=== PATIENT | female | born 1995 | race African-American/Black ===

== ENCOUNTER 2016-08-11 17:21 | Emergency (ER) | payer OTHER ==
[2016-08-11 17:32] VITALS: BP 124/68; PULSE 74; TEMP 98.2; BMI 21.9
--- NOTE | 2016-08-11 18:20 | PDOC ---
History of Present Illness - General History Source: Patient Exam Limitations: No Limitations - History of Present Illness Initial Comments: 08/11/16 18:54 The patient is a 21-year-old female (- currently 12 weeks ), with no significant past medical history, who presents to the emergency department with vaginal bleeding and lower abdominal cramping today. She reports that the vaginal bleeding started immediately prior to arrival to the ED, and is ongoing at time of interview. She reports associated lower abdominal cramping and discomfort, with a severity of 6/10, without radiation, that started earlier today. She denies any passage of clots. She reports she was diagnosed with BV early on in this . The patient denies chest pain, shortness of breath, headache and dizziness. The patient denies fever, chills, nausea, vomit, diarrhea and constipation. The patient denies dysuria, frequency, urgency and hematuria. Allergies: No known drug allergies Past surgical history: None reported Social history: Denies smoking, ETOH, recreational drug use FURNACE RELINER: Dr. Lisette Rojas <Suellen Maddox - Last Filed: 08/11/16 18:54> <Zelda Goodman - Last Filed: 08/11/16 20:43> - General History Source: Patient Exam Limitations: No Limitations <Saritha Pearson - Last Filed: 08/14/16 10:33> - General Chief Complaint: Vaginal Bleeding Stated Complaint: VAGINAL BLEEDING Time Seen by Provider: 08/11/16 17:59 Past History <Suellen Maddox - Last Filed: 08/11/16 18:54> <Zelda Goodman - Last Filed: 08/11/16 20:43> - Past Medical History Asthma: No Cancer: No Cardiac Disorders: No Diabetes: No HTN: No Seizures: No Thyroid Disease: No - Reproductive History (#): 1 Para: 1 Cervical CA: No Dysfunctional Uterine Bleeding: No Ectopic : No Endometrial CA: No Polycystic Ovaries: No Therapeutic (s) & number: No Tubal Ligation: No Spontaneous : 0 - Immunization History Immunization Up to Date: Yes - Psycho/Social/Smoking Cessation Hx Anxiety: No Suicidal Ideation: No Smoking Status: No Smoking History: Never smoked Have you smoked in the past 12 months: No Number of Cigarettes Smoked Daily: 0 Information on smoking cessation initiated: No Hx Alcohol Use: No Drug/Substance Use Hx: No Substance Use Type: None Hx Substance Use Treatment: No <Saritha Pearson - Last Filed: 08/14/16 10:33> - Past Medical History Allergies/Adverse Reactions: Allergies Allergy/AdvReac Type Severity Reaction Status Date / Time No Known Allergies Allergy Verified 08/11/16 17:32 Home Medications: Ambulatory Orders Vit/Iron Fumarate/FA [ Tablet] 1 each PO DAILY 08/11/16 Review of Systems - Review of Systems Able to Perform ROS?: Yes Comments:: 08/11/16 18:54 GENERAL/CONSTITUTIONAL: No: fever, chills, weakness, loss of appetite. HEAD, EYES, EARS, NOSE AND THROAT: No: change in vision, ear pain, discharge, sore throat, throat swelling. CARDIOVASCULAR: No: chest pain, lightheadedness, palpitations, syncope RESPIRATORY: No: cough, shortness of breath, wheezing, hemoptysis, stridor. GASTROINTESTINAL: No: nausea, vomiting, diarrhea, rectal bleeding, constipation. GENITOURINARY: No: dysuria, hematuria, frequency, urgency, flank pain. PELVIC: Present: (+) vaginal bleeding, (+) lower abdominal cramping MUSCULOSKELETAL: No: back pain, neck pain, joint pain, muscle swelling or pain SKIN AND BREASTS: No: lesions, pallor, rash or easy bruising. NEUROLOGIC: No: headache, vertigo, paresthesias, weakness ENDOCRINE: No: unexplained weight gain or loss HEMATOLOGIC/LYMPHATIC: No: anemia, easy bleeding, swelling nodes <Maddox,Suellen - Last Filed: 08/11/16 18:54> *Physical Exam - Vital Signs Last Vital Signs Temp Pulse Resp BP Pulse Ox 98.2 F 74 18 124/68 100 08/11/16 17:30 08/11/16 17:30 08/11/16 17:30 08/11/16 17:30 08/11/16 17:30 - Physical Exam Comments: 08/11/16 18:55 GENERAL: The patient is in no acute distress. HEAD: Normal with no signs of trauma. EYES: PERRLA, EOMI, sclera anicteric, conjunctiva clear. ENT: Ears normal, nares patent, oropharynx clear without exudates. Moist mucous membranes. NECK: Normal range of motion, supple without lymphadenopathy, JVD, or masses. LUNGS: Breath sounds equal, clear to auscultation bilaterally. No wheezes, and no crackles. HEART:Regular rate and rhythm, normal S1 and S2 without murmur, rub or gallop. ABDOMEN: (+) Gravid abdomen. No lower abdominal tenderness. No guarding, no rebound. Soft, normoactive bowel sounds. EXTREMITIES: Normal range of motion, no edema. No clubbing or cyanosis. No erythema, or tenderness. NEUROLOGICAL: Cranial nerves II through XII grossly intact. Normal speech. No focal neurological deficits. MUSCULOSKELETAL: Back non-tender to palpation, no CVA tenderness SKIN: Warm, Dry, normal turgor, no rashes or lesions noted. <Suellen Maddox - Last Filed: 08/11/16 18:54> - Vital Signs Last Vital Signs Temp Pulse Resp BP Pulse Ox 98.2 F 74 18 124/68 100 08/11/16 17:30 08/11/16 17:30 08/11/16 17:30 08/11/16 17:30 08/11/16 17:30 <Zelda Goodman - Last Filed: 08/11/16 20:43> - Vital Signs Last Vital Signs Temp Pulse Resp BP Pulse Ox 98.2 F 74 18 124/68 100 08/11/16 17:30 08/11/16 17:30 08/11/16 17:30 08/11/16 17:30 08/11/16 17:30 <Saritha Pearson - Last Filed: 08/14/16 10:33> ED Treatment Course - LABORATORY CBC & Chemistry Diagram: 08/11/16 18:24 08/11/16 18:24 - ADDITIONAL ORDERS Additional order review: Laboratory Results 08/11/16 18:24 Urine Color Ltyellow Urine Appearance Clear Urine pH 5.0 Ur Specific [place] 1.014 Urine Protein Negative Urine Glucose (UA) Negative Urine Ketones Negative Urine Blood 3+ H Urine Nitrite Negative Urine Bilirubin Negative Urine Urobilinogen Negative Ur Leukocyte Esterase Negative Urine RBC 471 Urine WBC 7 Ur Epithelial Cells Rare Urine Bacteria Rare Urine Mucus Rare 08/11/16 18:24 RBC 3.92 D MCV 87.1 MCHC 32.0 RDW 13.3 MPV 9.5 D Neutrophils % 73.8 Lymphocytes % 18.4 D Monocytes % 6.4 Eosinophils % 1.0 Basophils % 0.4 <MaddoxRosiSuellen - Last Filed: 08/11/16 18:54> - LABORATORY CBC & Chemistry Diagram: 08/11/16 18:24 08/11/16 18:24 - ADDITIONAL ORDERS Additional order review: Laboratory Results 08/11/16 08/11/16 08/11/16 18:24 18:24 18:24 Sodium 139 Potassium 3.7 Chloride 103 Carbon Dioxide 23 Anion Gap 13 BUN 6 L D Creatinine 0.6 Random Glucose 87 Calcium 8.6 Beta HCG, Quant 07612.0 Urine Color Ltyellow Urine Appearance Clear Urine pH 5.0 Ur Specific [place] 1.014 Urine Protein Negative Urine Glucose (UA) Negative Urine Ketones Negative Urine Blood 3+ H Urine Nitrite Negative Urine Bilirubin Negative Urine Urobilinogen Negative Ur Leukocyte Esterase Negative Urine RBC 471 Urine WBC 7 Ur Epithelial Cells Rare Urine Bacteria Rare Urine Mucus Rare Blood Type A POSITIVE Antibody Screen Negative 08/11/16 18:24 RBC 3.92 D MCV 87.1 MCHC 32.0 RDW 13.3 MPV 9.5 D Neutrophils % 73.8 Lymphocytes % 18.4 D Monocytes % 6.4 Eosinophils % 1.0 Basophils % 0.4 <Zelda Goodman - Last Filed: 08/11/16 20:43> - LABORATORY CBC & Chemistry Diagram: 08/11/16 18:24 08/11/16 18:24 <Saritha Pearson - Last Filed: 08/14/16 10:33> Medical Decision Making - Medical Decision Making 08/11/16 20:38 Patient Name: Netta Muir THIS IS A PRELIMINARY REPORT FROM IMAGING PROCUREMENT DIRECTOR DATE OF SERVICE: 2016-08-11 19:42:26.0 IMAGES: 31 EXAM: Ultrasound OB transabdominal HISTORY:Vaginal bleeding, abdominal pain COMPARISON: None. FINDINGS:There is a single intrauterine gestation with crown-rump length measurement corresponding to 12 weeks 3 days gestation. The calculated . heart motion is 156.5 beats per minute. Placenta is anterior lateral. Left ovary measures 4.8 x 2.6 x 4.3 cm. There is a mildly complex 2.8 x 2.5 x 3.1 cm ovarian cyst. IMPRESSION: Single intrauterine gestation 12 weeks 4 days with calculated due date of 02/19/17. <Zelda Goodman - Last Filed: 08/11/16 20:43> - Medical Decision Making 08/11/16 18:17 A portion of this note was documented by scribe services under my direction. I have reviewed the details of the note, within reason, and agree with the documentation with the following case summary and management plan written by me. Nursing documentation reviewed and incorporated into medical decision making This is a 21-year-old female, approximately 12 weeks presented to emergency department with a complaint of vaginal bleeding. Patient states her symptoms began just before arrival to emergency department. Patient notes she has lower abdominal crampy pain which she rates 7/10 and states began earlier today. Patient is not saturating any pads. No lightheadedness or dizziness Patient had a recent diagnosis of bacterial vaginosis, was treated with MetroGel. No medical history. No surgeries. On Awake Counselor: Dr. Berkowitz 08/11/16 18:18 Differential diagnosis: Threatened Ab, spontaneous AB, subchorionic bleeding Will do labs - CBC, Type and Screen BHCG Will do US Will re assess Signed out to Hazel Goodman <Saritha Pearson - Last Filed: 08/14/16 10:33> *DC/Admit/Observation/Transfer - Attestations Scribe Attestion: 08/11/16 18:55 Documentation prepared by Suellen Maddox, acting as medical lab technician for Saritha Pearson MD. <Suellen Maddox - Last Filed: 08/11/16 18:54> - Discharge Dispostion Admit: No <Zelda Goodman - Last Filed: 08/11/16 20:43> <Saritha Pearson - Last Filed: 08/14/16 10:33> Diagnosis at time of Disposition: Threatened - Discharge Dispostion Disposition: HOME Condition at time of disposition: Stable - Referrals Referrals: Lisette Rojas MD [Staff Physician] -
[2016-08-11 18:30] LABS: BASOPHIL 0.4 % (0-2.0); MCH 27.9 pg (25.7-33.7); MEAN CELL VOLUME 87.1 fl (80-96); MEAN PLT VOLUME 9.5 fl (7.5-11.1); NEUTROPHILS 73.8 % (42.8-82.8); PLATELET COUNT 203 K/MM3 (134-434); RDW 13.3 % (11.6-15.6); WHITE BLOOD COUNT 7.6 K/mm3 (4.0-10.0)
[2016-08-11 18:32] LABS: URINE APPEARANCE CLEAR; URINE BILIRUBIN NEGATIVE (NEGATIVE); URINE COLOR LTYELLOW; URINE GLUCOSE (UA) NEGATIVE (NEGATIVE); URINE KETONE NEGATIVE (NEGATIVE); URINE LEUK ESTERASE NEGATIVE (NEGATIVE); URINE NITRITE NEGATIVE (NEGATIVE); URINE PROTEIN NEGATIVE (NEGATIVE); URINE UROBILINOGEN NEGATIVE E.U./dl (0.2-1.0)
[2016-08-11 18:33] LABS: URINE BLOOD 3+ (NEGATIVE)
[2016-08-11 18:41] LABS: URINE BACTERIA RARE /hpf (NONE SEEN); URINE MUCUS RARE; URINE RBC 471 /hpf (0-3); URINE WBC 7 /hpf (3-5)
[2016-08-11 18:54] LABS: CALCIUM 8.6 mg/dL (8.5-10.1); CREATININE 0.6 mg/dL (0.55-1.02)
[2016-08-11] MEDS ORDERED: ACETAMINOPHEN 325 MG TABLET (FP) ONE (19:28)
[2016-08-11] MEDS ORDERED: ACETAMINOPHEN 325 MG TABLET (FP) PO ONE (19:55)
== END 2016-08-11 20:57 | disposition home or self-care (01) ==
LOC: JER 17:21
DX: O20.0 Threatened abortion (principal); Z3A.12 12 weeks gestation of pregnancy
CPT/HCPCS: 36415; 76801-TC; 80048; 81003; 81015; 84702; 85025; 86850; 86900; 86901; 87086; 99283-25

== ENCOUNTER 2016-08-31 16:13 | Emergency (ER) | payer OTHER ==
[2016-08-31 16:17] VITALS: BP 121/78; PULSE 78; TEMP 98; BMI 21.9
--- NOTE | 2016-08-31 17:42 | PDOC ---
History of Present Illness - General Chief Complaint: Vaginal Bleeding Stated Complaint: VAGINAL BLEEDING, 16 WKS History Source: Patient Exam Limitations: No Limitations - History of Present Illness Travel History: No Initial Comments: 08/31/16 17:37 HPI: This 21 year old female who is 16 weeks presents to ER with some mild vaginal spotting that started for 5 days as dark brown and now becoming horse breaker with one clot today. She is G 2 P1. There were no high risk issues on her last . She states one month ago she had heavy vaginal bleeding and her STAFFING RN stated everything was ok and possibly due to stress and placed on bedrest. She was not told she has any placenta previa or abrupto. She has had some cramping on and off Chief Compliant:vaginal bleeding in 2nd trimester PMH: none FH: Pt has not recently traveled outside the country in the last 30 days. Pt has not been in contact with people who have traveled out of the country, in contact with people who have been ill with fever, n, v, d. SH: smoking use: NONE illicit drug use: NONE alcohol use: NONE PSH: Home med use noted on OCT Allergies:nka Immunizations: PCP: STAFFING RN:Dr. Rojas LMP:05/25/2016 Past History - Past Medical History Allergies/Adverse Reactions: Allergies Allergy/AdvReac Type Severity Reaction Status Date / Time No Known Allergies Allergy Verified 08/31/16 16:17 Home Medications: Ambulatory Orders Vit/Iron Fumarate/FA [ Tablet] 1 each PO DAILY 08/11/16 Asthma: No Cancer: No Cardiac Disorders: No Diabetes: No HTN: No Seizures: No Thyroid Disease: No - Reproductive History (#): 1 Para: 1 Cervical CA: No Dysfunctional Uterine Bleeding: No Ectopic : No Endometrial CA: No Polycystic Ovaries: No Therapeutic (s) & number: No Tubal Ligation: No Spontaneous : 0 - Immunization History Immunization Up to Date: Yes - Psycho/Social/Smoking Cessation Hx Anxiety: No Suicidal Ideation: No Smoking Status: No Smoking History: Never smoked Have you smoked in the past 12 months: No Number of Cigarettes Smoked Daily: 0 Information on smoking cessation initiated: No Hx Alcohol Use: No Drug/Substance Use Hx: No Substance Use Type: None Hx Substance Use Treatment: No Review of Systems - Review of Systems Able to Perform ROS?: Yes Comments:: 08/31/16 18:24 General statement: I have vaginal bleeding and I am Hematology: neg history of bleeding/blood thinners Skin: Neg for lesions, rash, bruising. HEENT: Neg symptoms Respiratory: Neg SOB or difficulty in breathing Cardiac: Neg chest pain GI: Neg pain, n/v STAFFING RN: vaginal bleeding : Neg problems on voiding MS: Neg for joint pain/stiffness, no edema Neuro: Neg for LOC, weakness, Endocrine: Neg for excess thirst/hunger, cold/heat intolerance, excess sweating Allergies: Neg for allergies *Physical Exam - Vital Signs Last Vital Signs Temp Pulse Resp BP Pulse Ox 98 F 78 18 121/78 98 08/31/16 16:15 08/31/16 16:15 08/31/16 16:15 08/31/16 16:15 08/31/16 16:15 - Physical Exam Comments: 08/31/16 18:24 General Appearance: This well appearing 21 year old female V/S: hemodynamically stable, afebrile Skin: WNL of pt's skin color, no signs of pallor, mottling, cyanosis Head:symmetrical Eyes: EOM's intact, PERRLA Ears: denies pain Nose: patent Throat: lips, teeth, gums, tongue, buccal mucos pink and moist Lungs: Chest symmetry equal. Cap refill <3 seconds. Lung sounds clear Cardiac: PMI at R 4MCL space, pos S1 and S2, regular rate. Abdomen: Soft, round, nontender STAFFING RN: states 2 peripads used today due to bleeding : Not observed Muscularskeletal: Gait steady, ambulated in to ER, no edema +PMS Neuro: AAOx3, cognitively intact, speech clear and appropriate. ED Treatment Course - LABORATORY CBC & Chemistry Diagram: 08/31/16 17:43 Medical Decision Making - Medical Decision Making 08/31/16 18:25 Pt seen and examined. Pt states vaginal bleeding an mild crampin with 16 week A/P Threatened vs abrupto/previa 1. cbc 2. t and s 3 ua 4 beta hcg 5. pelvic u/s 08/31/16 18:48 I am signing this patient out to my colleague: RICK Sheridan In brief, this patient is being seen in the ED for a chief complaint of: vaginal bleeding in 2nd trimester bleeding I have completed the initial assessment interview note and have ordered:u/s and labs Please call the PCP:Dr. Rojas Plan for disposition is as follows: pending *DC/Admit/Observation/Transfer Diagnosis at time of Disposition: Abdominal pain in - Referrals Referrals: Susanna Carver MD [Primary Care Provider] -
--- NOTE | 2016-08-31 17:42 | PDOC ---
[id number] 98 08/31/16 16:15 08/31/16 16:15 08/31/16 16:15 08/31/16 16:15 08/31/16 16:15 ED Treatment Course - LABORATORY CBC & Chemistry Diagram: 08/31/16 17:43 Medical Decision Making - Medical Decision Making 08/31/16 17:42 Pt seen by the Advanced Practice Provider under my direct supervision Ancillary studies reviewed I agree with plan as outlined by the Advanced Practice Provider JULIAN Webb *DC/Admit/Observation/Transfer Diagnosis at time of Disposition: Abdominal pain in , Vaginal bleeding in , Threatened - Discharge Dispostion Disposition: HOME - Referrals Referrals: Susanna Carver MD [Primary Care Provider] - - Patient Instructions Printed Discharge Instructions: DI for Vaginal Bleeding During Additional Instructions: FOLLOW UP WITH YOUR DRYWALL STRIPPER HELPER EARLY NEXT WEEK DISCUSSED. RETURN IF SYMPTOMS WORSEN OR ANY CONCERNS FOR FURTHER EVALUATION. Print Language: GRENADIAN - Post Discharge Activity Work/School Note: Back to Work
[2016-08-31 17:59] LABS: BASOPHIL 0.5 % (0-2.0); EOSINOPHIL 0.4 % (0-4.5); MCH 29.1 pg (25.7-33.7); MCHC 33.2 g/dl (32.0-36.0); MEAN CELL VOLUME 87.9 fl (80-96); MEAN PLT VOLUME 9.8 fl (7.5-11.1); NEUTROPHILS 74.5 % (42.8-82.8); PLATELET COUNT 177 K/MM3 (134-434); RDW 13.4 % (11.6-15.6); WHITE BLOOD COUNT 7.6 K/mm3 (4.0-10.0)
[2016-08-31 18:07] LABS: URINE APPEARANCE CLOUDY; URINE BILIRUBIN NEGATIVE (NEGATIVE); URINE BLOOD 3+ (NEGATIVE); URINE COLOR YELLOW; URINE GLUCOSE (UA) NEGATIVE (NEGATIVE); URINE KETONE TRACE (NEGATIVE); URINE LEUK ESTERASE 2+ (NEGATIVE); URINE NITRITE NEGATIVE (NEGATIVE); URINE PROTEIN NEGATIVE (NEGATIVE); URINE UROBILINOGEN 2.0 E.U/dl E.U./dl (0.2-1.0)
[2016-08-31 18:15] LABS: CALCIUM OXALATE CRYSTALS RARE /hpf (NONE SEEN); URINE BACTERIA MODERATE /hpf (NONE SEEN); URINE MUCUS MODERATE; URINE RBC 25 /hpf (0-3); URINE WBC 54 /hpf (3-5)
--- NOTE | 2016-08-31 20:47 | PDOC ---
*Physical Exam - Vital Signs Last Vital Signs Temp Pulse Resp BP Pulse Ox 98 F 78 18 121/78 98 08/31/16 16:15 08/31/16 16:15 08/31/16 16:15 08/31/16 16:15 08/31/16 16:15 ED Treatment Course - LABORATORY CBC & Chemistry Diagram: 08/31/16 17:43 - ADDITIONAL ORDERS Additional order review: Laboratory Results 08/31/16 08/31/16 08/31/16 17:43 17:43 17:41 Beta HCG, Quant 97624.5 Urine Color Yellow Urine Appearance Cloudy Urine pH 5.0 Ur Specific [place] 1.025 Urine Protein Negative Urine Glucose (UA) Negative Urine Ketones Trace H Urine Blood 3+ H Urine Nitrite Negative Urine Bilirubin Negative Urine Urobilinogen 2.0 e.u/dl H Ur Leukocyte Esterase 2+ H Urine RBC 25 Urine WBC 54 Ur Epithelial Cells Moderate Calcium Oxalate Crystal Rare Urine Bacteria Moderate Urine Mucus Moderate Blood Type A POSITIVE Antibody Screen Negative 08/31/16 17:43 RBC 3.75 MCV 87.9 MCHC 33.2 RDW 13.4 MPV 9.8 Neutrophils % 74.5 Lymphocytes % 18.7 Monocytes % 5.9 Eosinophils % 0.4 Basophils % 0.5 Progress Note - Progress Note Progress Note: Spoke with patient regarding results of subchronic bleeding. Discussed with patient that this is a common finding and that she should follow up with her OB/ SALES CLOSER early next week. Patient states she has an appointment for Sep 12. Patient was instructed to get in sooner if she can. *DC/Admit/Observation/Transfer Diagnosis at time of Disposition: Abdominal pain in , Threatened Vaginal bleeding in Qualifiers: Trimester: second trimester Qualified Code(s): O46.92 - Antepartum hemorrhage, unspecified, second trimester - Discharge Dispostion Disposition: HOME Condition at time of disposition: Stable Admit: No - Referrals Referrals: Susanna Carver MD [Primary Care Provider] - - Patient Instructions Printed Discharge Instructions: DI for Vaginal Bleeding During Additional Instructions: FOLLOW UP WITH YOUR COLLAR TACKER EARLY NEXT WEEK DISCUSSED. RETURN IF SYMPTOMS WORSEN OR ANY CONCERNS FOR FURTHER EVALUATION. Print Language: GREEK - Post Discharge Activity Work/School Note: Back to Work
== END 2016-08-31 20:58 | disposition home or self-care (01) ==
LOC: JER 16:13
DX: O26.892 Other specified pregnancy related conditions, second trimester (principal); Z3A.16 16 weeks gestation of pregnancy; R10.9 Unspecified abdominal pain
CPT/HCPCS: 36415; 76801-TC; 81003; 81015; 84702; 85025; 86850; 86900; 86901; 99282-25

== ENCOUNTER 2017-02-18 09:05 | Inpatient (IN) | payer OTHER ==
[2017-02-18 09:58] VITALS: BMI 24.7
[2017-02-18 10:59] LABS: BASOPHIL 0.4 % (0-2.0); EOSINOPHIL 0.6 % (0-4.5); MEAN CELL VOLUME 90.9 fl (80-96); NEUTROPHILS 70.8 % (42.8-82.8); PLATELET COUNT 135 K/MM3 (134-434); RDW 13.1 % (11.6-15.6); WHITE BLOOD COUNT 6.8 K/mm3 (4.0-10.0)
[2017-02-18] MEDS ORDERED: DINOPROSTONE 10 MG VAGINAL SUPPOSITORY VG ONE (11:00)
[2017-02-18 11:25] LABS: ANION GAP 8 (8-16); CALCIUM 8.7 mg/dL (8.5-10.1); CO2 24 mmol/L (21-32); CREATININE 0.7 mg/dL (0.55-1.02); GLUCOSE,RANDOM 86 mg/dL (74-106)
[2017-02-18 11:28] LABS: INR 0.95 (0.82-1.09); PROTHROMBIN TIME (PATIENT) 10.4 SEC (9.98-11.88)
[2017-02-18 11:31] LABS: ACTIVATED PTT 26.9 SECONDS (26.9-34.4)
[2017-02-18] MEDS ORDERED: TUBERCULIN PPD 5 TU/0.1ML SYRINGE (IN PATIENT USE ONLY) ID ONE (13:00)
[2017-02-19] MEDS ORDERED: DEXTROSE 5%-LACTATED RINGERS 1,000 ML IV ONE (04:58)
[2017-02-19] MEDS ORDERED: BUTORPHANOL TARTRATE 1 MG/ML VIAL IVPUSH ONE (08:30)
[2017-02-19] MEDS ORDERED: PROMETHAZINE HCL 25 MG/1 ML VIAL IVPUSH ONE (08:30)
[2017-02-19] MEDS ORDERED: LACTATED RINGERS SOLUTION 1,000 ML IV ONE (11:00)
[2017-02-19] MEDS ORDERED: FENTANYL/BUPIVACAINE/NS/PF - PCEA - 50 ML DISP.SYRIN EP SCH (12:15)
--- NOTE | 2017-02-19 13:16 | HP ---
Past Medical History - Primary Care Physician PCP:: Lisette Rojas - Admission History Source: Patient Limitations to Obtaining History: No Limitations - Past Medical History ...: 2 ...Para: 1 ...Term: 1 ...: 0 ...Spon : 0 ...Induced : 0 ...Multiple Gestation: 0 ...LMP: 05/25/16 ...EDC by Dates: 03/01/17 ...EDC by Sono: 02/22/17 - Past Surgical History Past Surgical History: Yes: None - Smoking History Smoking history: Never smoked Have you smoked in the past 12 months: No Aproximately how many cigarettes per day: 0 - Alcohol/Substance Use Hx Alcohol Use: No Home Medications - Allergies Allergies/Adverse Reactions: Allergies Allergy/AdvReac Type Severity Reaction Status Date / Time No Known Allergies Allergy Verified 02/11/17 10:57 - Home Medications Home Medications: Ambulatory Orders Vit/Iron Fumarate/FA [ Tablet] 1 each PO DAILY 08/11/16 Review of Systems - Review of Systems Constitutional: reports: No Symptoms Eyes: reports: No Symptoms HENT: reports: No Symptoms Neck: reports: No Symptoms Cardiovascular: reports: No Symptoms Respiratory: reports: No Symptoms Gastrointestinal: reports: No Symptoms Genitourinary: reports: No Symptoms Breasts: reports: No Symptoms Reported Musculoskeletal: reports: No Symptoms Integumentary: reports: No Symptoms Neurological: reports: No Symptoms Endocrine: reports: No Symptoms Hematology/Lymphatic: reports: No Symptoms Psychiatric: reports: No Symptoms Physical Exam - Maternity Vital Signs: Vital Signs Temperature 98.0 F 02/19/17 10:00 Pulse Rate 64 02/19/17 12:45 Respiratory Rate 14 02/19/17 12:45 Blood Pressure 115/60 02/19/17 12:45 O2 Sat by Pulse Oximetry (%) 100 02/19/17 12:45 - Labs Lab Results: CBC, BMP 02/18/17 10:40 02/18/17 10:40 Hemorrhage Risk Assessment - Risk Factors Risk Score: 0 Risk Level: Low Risk Assessment/Plan Induction of labor at 39.4 weeks Plan Cervidil
[2017-02-19] MEDS ORDERED: OXYTOCIN 15 UNITS/ LR 250 ML 250 ML IVPB SCH (13:45)
--- NOTE | 2017-02-19 14:27 | PN ---
Ante-Partal Exam - Subjective Subjective: Pt with EFM - prolonged decel x 5 min Vital Signs: Vital Signs Temperature 98.0 F 02/19/17 10:00 Pulse Rate 64 02/19/17 12:45 Respiratory Rate 14 02/19/17 12:45 Blood Pressure 115/60 02/19/17 12:45 O2 Sat by Pulse Oximetry (%) 100 02/19/17 12:45 Bleeding: No Headache: No Visual changes: No Right upper quadrant pain: No - Contractions Contractions: Yes Regularity: Regular Intensity: Moderate Monitor Mode: Internal - Exam during Labor Heart Rate: 150 Variability: Moderate Category: II Monitor Accelerations: Present Monitor Decelerations: Prolonged Exam: Vaginal Dilatation (cm): 6 Effacement (%): 100 Amniotic Membrane Status: Ruptured Amniotic Fluid: Clear Presentation: Vertex Station: 0 - Intrapartum Hemorrhage Risk High Risk Factors: None Risk Score: 0 Risk Level: Low Risk - Assessment/Plan Assessment/Plan: iup at 39.5 week prolonged decel x 5 min Plan dc pitocin internal catheter placed
[2017-02-19] MEDS ORDERED: D5W-LR W/ 20 UNITS OXYTOCIN 1,000 ML IV ONE (16:45)
[2017-02-19 17:39] LABS: ARTERIAL BLD GAS O2 SATURATION 65.8 % (90-98.9); ARTERIAL BLOOD GAS BASE EXCESS -1.9 meq/l (-2-2); ARTERIAL BLOOD GAS HCO3 23.5 meq/L (22-26); ARTERIAL BLOOD GAS pH 7.34 (7.35-7.45); PT. ON O2? yes
[2017-02-19 17:40] LABS: ARTERIAL BLOOD GAS PO2 33.4 mmHg (80-100); LPM/O2% 6L; TYPE OF O2 S/M
[2017-02-19] MEDS ORDERED: OXYTOCIN 15 UNITS/ LR 250 ML 250 ML IV ONE (17:41)
[2017-02-19] MEDS ORDERED: METHYLERGONOVINE MALEATE 0.2 MG/1 ML AMP IM PRN (18:41)
[2017-02-19] MEDS ORDERED: WITCH HAZEL 50% (TUCKS) 40 PAD/JAR PAD TP PRN (18:41)
[2017-02-19] MEDS ORDERED: BENZOCAINE 20% 57 GM BOTTLE TP PRN (18:41)
[2017-02-19] MEDS ORDERED: BENZOCAINE 28 GM HEMORRHOIDAL OINTMENT PR PRN (18:41)
[2017-02-19] MEDS ORDERED: BISACODYL 10 MG SUPP.RECT RC PRN (18:41)
--- NOTE | 2017-02-19 18:44 | PN ---
Delivery - Delivery Vaginal Delivery: No Problems (shoulders delivered without comp OP position body cord x 1) Type of Anesthesia: Epidural Episiotomy/Laceration: None EBL (cc): 250 Delivery, Single - Stages of Labor Date 1st Stage Initiatied: 02/19/17 Time 1st Stage Initiated: 07:00 Date 2nd Stage Initiated: 02/19/17 Time 2nd Stage Initiated: 16:20 Date of Delivery: 02/19/17 Time of Delivery: 16:38 Time Placenta Delivered: 16:40 Placenta: Yes: Spontaneous - Condition of Infant Tunnel Inspector/Leather Dresser Present: No Gender: Female Weight: 5 lb 12 oz Position: OA Total Hours ROM (Hrs/Mins): 10/40 - 1 Minute Total Score: 9 5 Minutes Total Score: 9 - Feeding Plan Initial Plan: Exclusive throughout hospitalization
--- NOTE | 2017-02-20 06:11 | PN ---
Post Note - Post Date of Delivery: 02/19/17 Vital Signs: Vital Signs - 24 hr 02/19/17 02/19/17 02/19/17 08:00 09:00 10:00 Temperature 97.9 F 98.0 F Pulse Rate 58 L 61 64 Respiratory 18 18 18 Rate Blood Pressure 133/65 123/72 123/60 O2 Sat by Pulse Oximetry (%) 02/19/17 02/19/17 02/19/17 11:00 12:00 12:05 Temperature Pulse Rate 55 L 74 66 Respiratory 18 14 14 Rate Blood Pressure 123/53 131/66 141/70 O2 Sat by Pulse 100 100 Oximetry (%) 02/19/17 02/19/17 02/19/17 12:10 12:15 12:30 Temperature Pulse Rate 82 66 64 Respiratory 14 15 15 Rate Blood Pressure 136/75 115/68 114/68 O2 Sat by Pulse 100 99 100 Oximetry (%) 02/19/17 02/19/17 02/19/17 12:45 13:00 13:15 Temperature Pulse Rate 64 59 L 58 L Respiratory 14 14 15 Rate Blood Pressure 115/60 113/64 120/70 O2 Sat by Pulse 100 100 100 Oximetry (%) 02/19/17 02/19/17 02/19/17 13:30 13:45 14:00 Temperature 98.0 F Pulse Rate 58 L 58 L 60 Respiratory 15 14 14 Rate Blood Pressure 124/73 121/74 119/72 O2 Sat by Pulse 100 100 100 Oximetry (%) 02/19/17 02/19/17 02/19/17 14:15 14:30 16:45 Temperature Pulse Rate 75 75 59 L Respiratory 15 14 18 Rate Blood Pressure 117/64 117/82 131/88 O2 Sat by Pulse 100 100 100 Oximetry (%) 02/19/17 02/19/17 02/19/17 17:00 17:15 17:30 Temperature 97.6 F Pulse Rate 62 63 Respiratory 18 18 Rate Blood Pressure 138/65 129/76 O2 Sat by Pulse 99 100 100 Oximetry (%) 02/19/17 02/19/17 02/20/17 18:00 22:00 02:00 Temperature 98.5 F 99.2 F 98.2 F Pulse Rate 61 71 68 Respiratory 18 18 18 Rate Blood Pressure 131/73 133/65 112/57 O2 Sat by Pulse Oximetry (%) 02/20/17 06:00 Temperature 98.0 F Pulse Rate 66 Respiratory 18 Rate Blood Pressure 114/65 O2 Sat by Pulse Oximetry (%) Labs: Laboratory Results - last 24 hr 02/19/17 17:31 Puncture Site Md puncture ABG pH 7.34 L ABG pCO2 at Pt Temp 44.7 ABG pO2 at Pt Temp 33.4 L* ABG HCO3 23.5 ABG O2 Sat (Measured) 65.8 L* ABG O2 Content 12.4 L ABG Base Excess -1.9 Thony Test Not applicable O2 Delivery Device S/m Oxygen Flow Rate 6l - Subjective Subjective: No Complaints, Ambulating, No Nausea or vomiting - Objective Afebrile: Yes Breast: Not engorged Abdomen: Soft, Non-tender Uterus: Fundus firm Vagina: Scant lochia Extremities: Non-tender - Assessment/Plan (1) Normal vaginal delivery Assessment: S/P Normal Plan: Routine Care
[2017-02-20] MEDS: IBUPROFEN 600 MG TABLET (FP) PO PRN (07:36)
[2017-02-20] MEDS: ACETAMINOPHEN 325 MG TABLET (FP) PO PRN ×2 (07:37→21:39)
[2017-02-20 08:44] LABS: BASOPHIL 0.4 % (0-2.0); EOSINOPHIL 0.4 % (0-4.5); MCH 30.1 pg (25.7-33.7); MCHC 32.7 g/dl (32.0-36.0); MEAN PLT VOLUME 11.2 fl (7.5-11.1); NEUTROPHILS 75.5 % (42.8-82.8); PLATELET COUNT 114 K/MM3 (134-434); RDW 13.1 % (11.6-15.6); WHITE BLOOD COUNT 11.9 K/mm3 (4.0-10.0)
[2017-02-20] MEDS ORDERED: DIPHTH,PERTUSS(ACELL),TET 0.5 ML DISP.SYRIN IM ONE (10:00)
[2017-02-21] MEDS: ACETAMINOPHEN 325 MG TABLET (FP) PO PRN (02:59)
[2017-02-21] MEDS: IBUPROFEN 600 MG TABLET (FP) PO PRN (06:39)
[2017-02-21 08:48] VITALS: BP 132/56; PULSE 69; TEMP 98.5
--- NOTE | 2017-02-21 09:24 | DS ---
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: Vital Signs Temperature 98.5 F 02/21/17 07:50 Pulse Rate 69 02/21/17 07:50 Respiratory Rate 20 02/21/17 07:50 Blood Pressure 132/56 02/21/17 07:50 O2 Sat by Pulse Oximetry (%) 100 02/19/17 17:30 Constitutional: Yes: Well Nourished Eyes: Yes: Conjunctiva Clear HENT: Yes: Atraumatic Neck: Yes: Supple, Trachea Midline Cardiovascular: Yes: Regular Rate and Rhythm Respiratory: Yes: Regular, CTA Bilaterally Gastrointestinal: Yes: Normal Bowel Sounds Vaginal Exam: Yes: Normal Cervix: Yes: Normal Uterus: Yes: Firm ....Post : Yes: Uterus firm, Slight lochia rubra Breast(s): Yes: WNL Musculoskeletal: Yes: WNL Extremities: Yes: WNL Neurological: Yes: Alert, Oriented ...Motor Strength: WNL Psychiatric: Yes: Alert, Oriented Labs: CBC, BMP 02/20/17 07:00 02/18/17 10:40 Delivery - Delivery Vaginal Delivery: No Problems (shoulders delivered without comp OP position body cord x 1) Type of Anesthesia: Epidural Episiotomy/Laceration: None EBL (cc): 250 Delivery, Single - Stages of Labor Date 1st Stage Initiatied: 02/19/17 Time 1st Stage Initiated: 07:00 Date 2nd Stage Initiated: 02/19/17 Time 2nd Stage Initiated: 16:20 Date of Delivery: 02/19/17 Time of Delivery: 16:38 Time Placenta Delivered: 16:40 Placenta: Yes: Spontaneous - 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 You may walk unlimited dimas of and climb stairs. You may resume driving the car when you feel safe and comfortable behind the wheel. No sexual activity as instructed. Wound care If you have a bandage, leave it on, and keep dry for 48-72 hours. After that time discard the outer bandage. If they are tapes on the skin under the out of bandage leave them in place. They will peel off in the next 7 to 10 days. Do Not Peel them off. You may shower the day after surgery. If there are tapes present on the skin, you may shower over them. Diet There are no dietary restrictions. Eat healthy, high-fiber foods. Drink 6 to 8 glasses of liquid each day. This will assist in keeping your bowels are regular. Pain management You may take Tylenol or acetaminophen or Ibuprofen (for example, Motrin, Advil etc.) from my pain prescription medication is ordered should be taken as prescribed for moderate to severe pain. Call MD for any of the following: Severe pain not relieved by medication Fever of 101 or higher Excessive bleeding or drainage on dressing Inability to urinate Referrals: Lisette Rojas MD [Staff Physician] - Disposition: HOME - Home Medications Comprehensive Discharge Medication List: Ambulatory Orders Vit/Iron Fumarate/FA [ Tablet] 1 each PO DAILY 08/11/16 Ibuprofen [Motrin -] 600 mg PO QID PRN #28 tablet 02/20/17
== END 2017-02-21 13:15 | disposition home or self-care (01) | DRG 560 ==
LOC: JLDR 09:05 → J3W 02-19 18:07
PROVIDERS: ADMIT Obstetrics & Gynecology; ATTEND Obstetrics & Gynecology
PROC: 3E0P7GC Introduction of Other Therapeutic Substance into Female Reproductive, Via Natural or Artificial Opening (ICD-10-PCS; 2017-02-18)
PROC: 10E0XZZ Delivery of Products of Conception, External Approach (ICD-10-PCS; principal; 2017-02-19)
DX: O80 Encounter for full-term uncomplicated delivery (principal); Z3A.39 39 weeks gestation of pregnancy; Z37.0 Single live birth
CPT/HCPCS: 36415; 36600; 59409; 80048; 82803; 85025; 85610; 85730; 86593; 86850; 86900; 86901; 90715

== ENCOUNTER 2018-08-07 16:01 | Emergency (ER) | payer OTHER ==
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
[2018-08-07 16:18] VITALS: BP 131/83; PULSE 64; TEMP 98.3; BMI 18.6
[2018-08-07] MEDS ORDERED: ACETAMINOPHEN 325 MG TABLET (FP) PO ONE (16:35)
[2018-08-07] MEDS ORDERED: ONDANSETRON *ODT* 4 MG TABLET SL ONE (16:35)
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
[2018-08-07] MEDS ORDERED: ACETAMINOPHEN 325 MG TABLET (FP) ONE (17:27)
[2018-08-07] MEDS ORDERED: ONDANSETRON *ODT* 4 MG TABLET ONE (17:27)
== END 2018-08-07 19:00 | disposition home or self-care (01) ==
LOC: JERFT 16:01
DX: G44.319 Acute post-traumatic headache, not intractable (principal); Y04.2XXD Assault by strike against or bumped into by another person, subsequent encounter
CPT/HCPCS: 70450-TC; 99281-25; Q0162

== ENCOUNTER 2024-04-11 17:45 | Emergency (ER) | payer OTHER ==
[2024-04-11 17:53] VITALS: BP 122/70; PULSE 67; RESP 20; TEMP 98.4; BMI 27.1
[2024-04-11 20:03] LABS: HIV INTERPRETATION NEGATIVE (NEGATIVE)
== END 2024-04-11 19:52 | disposition home or self-care (01) ==
LOC: JERFT 17:45
DX: M79.605 Pain in left leg (principal)
CPT/HCPCS: 36415; 86803; 87389; 93971-TC; 99284-25